=== PATIENT | male | born 1965 | race Native Hawaiian/Other Pacific Islander ===

== ENCOUNTER 2017-01-29 04:57 | Emergency (ER) | payer OTHER ==
[~2017-01-29] VITALS: Ht 182.9 cm; Wt 68.0 kg
[2017-01-29 06:13] VITALS: BP 155/74; TEMP 98.7
== END 2017-01-29 06:20 | disposition home or self-care (01) ==
LOC: ED 04:57
DX: R10.31 Right lower quadrant pain (principal)
CPT/HCPCS: 99282

== ENCOUNTER 2017-01-30 08:57 | Outpatient (CLI) | payer OTHER | END 2017-01-30 09:57 | disposition home or self-care (01) | LOC: US 08:57 | DX: R10.31 Right lower quadrant pain (principal) ==

== ENCOUNTER 2017-02-26 07:19 | Day surgery (SDC) | payer OTHER ==
[~2017-02-26] VITALS: Ht 30.5 cm; Wt 0.5 kg
[2017-02-26 08:06] LABS: POTASSIUM 3.6 mmol/L (3.6-5.2); SODIUM 137 mmol/L (136-145)
[2017-02-26 08:07] LABS: PLATELET COUNT 233 K/uL (142-355)
[2017-02-26 08:21] LABS: PARTIAL THROMBOPLASTIN TIME 22.9 SECONDS (24.5-33.6)
== END 2017-02-26 12:06 | disposition home or self-care (01) ==
LOC: OR 07:19
PROVIDERS: Student in an Organized Health Care Education/Training Program
PROC: 0FT44ZZ Resection of Gallbladder, Percutaneous Endoscopic Approach (ICD-10-PCS; principal; 2017-02-26)
DX: K81.1 Chronic cholecystitis (principal)
CPT/HCPCS: 36415; 80053; 85027; 85610; 85730; J0690; J1100; J1885; J2001; J2250; J2405; J2704; J2710; J3010; J3490; S0028

== ENCOUNTER 2017-12-20 09:41 | Outpatient (CLI) | payer BC | END 2017-12-20 21:57 | disposition home or self-care (01) | LOC: US 09:41 | DX: R10.31 Right lower quadrant pain (principal) ==

== ENCOUNTER 2023-03-08 09:54 | Outpatient (CLI) | payer OTHER ==
[2023-03-08 10:22] LABS: PLATELET COUNT 228 K/uL (142-355)
[2023-03-08 11:03] LABS: POTASSIUM 4.3 mmol/L (3.6-5.2)
== END 2023-03-08 19:14 | disposition home or self-care (01) ==
LOC: LABW 09:54
PROVIDERS: ATTEND Internal Medicine
DX: I10 Essential (primary) hypertension (principal)
CPT/HCPCS: 36415; 80053; 80061; 80074; 82024; 82330; 82550; 82728; 82746; 83036; 83540; 83550; 83735; 84100; 85027; 86038; 86140; 86147; 86160; 86225; 86235